=== PATIENT | male | born 1955 | race Caucasian/White ===

== ENCOUNTER → 2016-10-19 | Outpatient (CLI) | payer OTHER | END | disposition home or self-care (01) | LOC: LABWHC1 15:48 | PROVIDERS: ATTEND Internal Medicine Cardiovascular Disease | DX: I48.2 Chronic atrial fibrillation (principal) | CPT/HCPCS: 36415; 84443; 84450; 84460 ==

== ENCOUNTER → 2016-11-13 | Outpatient (CLI) | payer OTHER ==
[2016-11-13 11:10] LABS: CH 28.8; CHCM 33.1; HCT 50.3 % (39.0-53.0); HDW 2.64; MCH 27.8 pg (25.0-35.0); MCHC 31.8 g/dL (31.0-37.0); MCV 87.3 fL (80.0-100.0); RBC 5.76 m/uL (4.30-5.90); RDW 14.9 % (11.5-15.5); WBC 7.8 k/uL (3.8-10.6)
[2016-11-13 11:19] LABS: Anion Gap 10 mmol/L; Blood Urea Nitrogen 17 mg/dL (9-20); Carbon Dioxide 30 mmol/L (22-30); Chloride 104 mmol/L (98-107); Non-African American GFR(MDRD) >60 (>60 ml/min/1.73 sqM); Potassium 4.8 mmol/L (3.5-5.1); Sodium 144 mmol/L (137-145)
== END | disposition home or self-care (01) ==
LOC: LABPAT 10:43
PROVIDERS: ATTEND Internal Medicine Cardiovascular Disease
DX: Z01.818 Encounter for other preprocedural examination (principal); I48.1 Persistent atrial fibrillation
CPT/HCPCS: 80051; 82565; 84520; 85027

== ENCOUNTER 2016-11-22 06:46 | Day surgery (SDC) | payer OTHER ==
[2016-11-20 17:03] VITALS: BMI 37.5
[~2016-11-22 06:46] MED LIST: ALPRAZolam 0.25 MG TAB PO PRN; ALPRAZolam 0.5 MG TAB PO PRN; ASPIRIN 325 MG TAB PO STA; ATORVASTATIN 80 MG TAB PO STA; LACTATED RINGERS 1,000 ML IV SCH; NITROGLYCERIN SL TABS 0.4 MG TAB SUBLINGUAL PRN; SODIUM CHLORIDE 0.9% 1,000 ML in EMPTY BAG 1 BAG IV ONE
[2016-11-22 07:04] VITALS: TEMP 97.7
[2016-11-22 07:38] LABS: Prothrombin Time 19.3 sec (9.0-12.0)
[2016-11-22] MEDS ORDERED: LIDOCAINE 1% INJ 10MG/ML (20 ML MDV) ONE (07:55)
[2016-11-22] MEDS ORDERED: PROPOFOL 10 MG/ML 20 ML VIAL IV ONE (07:55)
[2016-11-22] MEDS: BENZOCAINE SPRAY 1 SPRAY CAN MUCOUS MEM ONE ×2 (07:55→08:00)
[2016-11-22] MEDS ORDERED: SODIUM CHLORIDE 0.9% 1,000 ML IV SCH (08:15)
--- NOTE | 2016-11-22 08:37 | ECHOT ---
INDICATIONS: Chronic atrial fibrillation. After obtaining informed consent, transesophageal echocardiogram was performed to rule out intracardiac thrombus prior to cardioversion in patient with chronic atrial fibrillation. Patient received local and IV sedation by the physician. He tolerated the procedure well without any obvious immediate complications. FINDINGS: 1. There is an echo dense lesion noted within the left atrial appendage, which could be a thrombus. We cannot rule out reverberation artifact either; however , we obtained the image in multiple views and even on color flow, color seemed to go around the lesion more suggestive of a thrombus than an artifact. 2. Left ventricle appears dilated, shows diffuse global hypokinesis with moderate to severe left ventricular dysfunction with an ejection fraction of 35% . 3. There is mild to moderate mitral regurgitation noted. 4. Aortic valve is a 3-leaflet valve. There is no evidence of aortic stenosis or regurgitation. 5 Tricuspid valve shows mild tricuspid regurgitation. 6. Interatrial septum does not show left to right shunt by color flow Doppler or right to left shunt by agitated saline contrast study. 7. Aorta shows mild to moderate atherosclerotic changes. CONCLUSION: 1. There is an echo dense lesion noted within the left atrial appendage, which could represent a thrombus, we cannot rule out an artifact. 2. Mild to moderate mitral regurgitation noted. 3. Diffuse global hypokinesis with moderate to severe left ventricular dysfunction with an ejection fraction of 35%. PLAN: I am going to cancel the cardioversion at this time. Continue him on Coumadin and the rest of the medications he is on. MTDD
[2016-11-22 09:42] VITALS: BP 121/84; PULSE 68; RESP 18
== END 2016-11-22 09:38 | disposition home or self-care (01) ==
LOC: CATHCVL 06:46
PROVIDERS: ATTEND Internal Medicine Cardiovascular Disease
DX: I48.2 Chronic atrial fibrillation (principal); I10 Essential (primary) hypertension; E78.5 Hyperlipidemia, unspecified; I42.0 Dilated cardiomyopathy; I34.0 Nonrheumatic mitral (valve) insufficiency; Z79.01 Long term (current) use of anticoagulants; Z79.899 Other long term (current) drug therapy
CPT/HCPCS: 85610; 93312; 93320; 93325

== ENCOUNTER 2016-12-11 09:00 | Inpatient (IN) | payer OTHER ==
[2016-12-11] MEDS ORDERED: SODIUM CHLORIDE 0.9% 500 ML IV STA (09:32)
--- NOTE | 2016-12-11 09:44 | ED ---
General Adult HPI - General Chief complaint: Extremity Problem,Nontraumatic Stated complaint: leg pain, burning, turning color Time Seen by Provider: 12/11/16 09:22 Source: patient, RN notes reviewed Mode of arrival: ambulatory Limitations: no limitations - History of Present Illness Initial comments: 61-year-old male presents to the emergency department with a chief complaint left/any redness and swelling. Patient states this is been getting worse for the last 3-4 days. Patient states he has had the shakes with this as well. Patient states that didn't admit to a history of infection to his leg in the past but states it cleared up with antibiotics outpatient clinic. Patient states he does take Coumadin as well. Patient denies any falls traumas or injuries to the leg. Patient states never took a fever to see if he had one. Patient denies any recent fever, chills, shortness of breath, chest pain, back pain, abdominal pain, nausea vomiting, numbness or tingling, dysuria or hematuria, constipation or diarrhea, headaches or visual changes, or any other current symptoms. - Related Data Home Medications Medication Instructions Recorded Confirmed Bumetanide 1 mg PO DAILY 01/18/16 12/11/16 Lisinopril [Zestril] 10 mg PO HS 01/18/16 12/11/16 Warfarin [Coumadin] 5 mg PO MOTUWETHFRSA 01/18/16 12/11/16 Warfarin [Coumadin] 7.5 mg PO BROWN 01/18/16 12/11/16 Amiodarone [Cordarone] 200 mg PO BID 11/20/16 12/11/16 Aspirin 325 mg PO HS 12/11/16 12/11/16 Cholecalciferol [Vitamin D3] 5,000 unit PO DAILY 12/11/16 12/11/16 Metoprolol Tartrate [Lopressor] 50 mg PO BID 12/11/16 12/11/16 Allergies Allergy/AdvReac Type Severity Reaction Status Date / Time No Known Allergies Allergy Verified 12/11/16 09:22 Review of Systems ROS Statement: Those systems with pertinent positive or pertinent negative responses have been documented in the HPI. ROS Other: All systems not noted in ROS Statement are negative. Past Medical History Past Medical History: Atrial Fibrillation, Heart Failure, Hyperlipidemia, Hypertension History of Any Multi-Drug Resistant Organisms: None Reported Past Surgical History: Tonsillectomy Additional Past Surgical History / Comment(s): CARDIOVERSION X2 WITH ZAIN Past Anesthesia/Blood Transfusion Reactions: Postoperative Nausea & Vomiting ( PONV) Additional Past Anesthesia/Blood Transfusion Reaction / Comment(s): SOME NAUSEA POST OP CARDIOVERSION Past Psychological History: No Psychological Hx Reported Smoking Status: Never smoker General Exam Limitations: no limitations General appearance: alert, in no apparent distress Neck exam: Present: normal inspection. Absent: tenderness, meningismus, lymphadenopathy Respiratory exam: Present: normal lung sounds bilaterally. Absent: respiratory distress, wheezes, rales, rhonchi, stridor Cardiovascular Exam: Present: regular rate, normal rhythm, normal heart sounds. Absent: systolic murmur, diastolic murmur, rubs, gallop, clicks Neurological exam: Present: alert, oriented X3 Psychiatric exam: Present: normal affect, normal mood Skin exam: Present: warm, dry, other (Redness and warmth to the left lower extremity this is circumferential below the knee) Course Vital Signs 12/11/16 12/11/16 09:03 11:32 Temperature 98.3 F 98.5 F Pulse Rate 109 H 92 Respiratory 18 18 Rate Blood Pressure 108/76 101/66 O2 Sat by Pulse 95 96 Oximetry Medical Decision Making - Medical Decision Making 61-year-old male presents to the emergency room chief complaint of left lower extremity redness and swelling.this time the case was spoken by Dr. Pizarro to Dr. Gloria any will be admitting the patient for IV antibiotics. This was discussed with the patient and he is in agreement with the plan. - Lab Data Result diagrams: 12/11/16 09:43 12/11/16 09:43 Lab Results 12/11/16 12/11/16 12/11/16 Range/Units 09:43 09:43 09:43 WBC 13.8 H (3.8-10.6) k/uL RBC 5.47 (4.30-5.90) m/uL Hgb 15.1 (13.0-17.5) gm/dL Hct 45.9 (39.0-53.0) % MCV 83.8 (80.0-100.0) fL MCH 27.6 (25.0-35.0) pg MCHC 33.0 (31.0-37.0) g/dL RDW 15.6 H (11.5-15.5) % Plt Count 158 (150-450) k/uL Neutrophils % 84 % Lymphocytes % 6 % Monocytes % 6 % Eosinophils % 1 % Basophils % 0 % Neutrophils # 11.7 H (1.3-7.7) k/uL Lymphocytes # 0.8 L (1.0-4.8) k/uL Monocytes # 0.9 (0-1.0) k/uL Eosinophils # 0.1 (0-0.7) k/uL Basophils # 0.0 (0-0.2) k/uL PT (9.0-12.0) sec INR (<1.2) APTT (22.0-30.0) sec Sodium 135 L (137-145) mmol/L Potassium 4.7 (3.5-5.1) mmol/L Chloride 104 (98-107) mmol/L Carbon Dioxide 19 L (22-30) mmol/L Anion Gap 12 mmol/L BUN 18 (9-20) mg/dL Creatinine 1.11 (0.66-1.25) mg/dL Est GFR (MDRD) Af Amer >60 (>60 ml/min/1.73 sqM) Est GFR (MDRD) Non-Af >60 (>60 ml/min/1.73 sqM) Glucose 127 H (74-99) mg/dL Plasma Lactic Acid Lobito 2.0 (0.7-2.0) mmol/L Calcium 9.3 (8.4-10.2) mg/dL Total Bilirubin 0.7 (0.2-1.3) mg/dL AST 28 (17-59) U/L ALT 29 (21-72) U/L Alkaline Phosphatase 72 (38-126) U/L Total Protein 6.9 (6.3-8.2) g/dL Albumin 3.7 (3.5-5.0) g/dL 12/11/16 Range/Units 09:43 WBC (3.8-10.6) k/uL RBC (4.30-5.90) m/uL Hgb (13.0-17.5) gm/dL Hct (39.0-53.0) % MCV (80.0-100.0) fL MCH (25.0-35.0) pg MCHC (31.0-37.0) g/dL RDW (11.5-15.5) % Plt Count (150-450) k/uL Neutrophils % % Lymphocytes % % Monocytes % % Eosinophils % % Basophils % % Neutrophils # (1.3-7.7) k/uL Lymphocytes # (1.0-4.8) k/uL Monocytes # (0-1.0) k/uL Eosinophils # (0-0.7) k/uL Basophils # (0-0.2) k/uL PT 17.9 H (9.0-12.0) sec INR 1.9 H (<1.2) APTT 28.9 (22.0-30.0) sec Sodium (137-145) mmol/L Potassium (3.5-5.1) mmol/L Chloride (98-107) mmol/L Carbon Dioxide (22-30) mmol/L Anion Gap mmol/L BUN (9-20) mg/dL Creatinine (0.66-1.25) mg/dL Est GFR (MDRD) Af Amer (>60 ml/min/1.73 sqM) Est GFR (MDRD) Non-Af (>60 ml/min/1.73 sqM) Glucose (74-99) mg/dL Plasma Lactic Acid Lobito (0.7-2.0) mmol/L Calcium (8.4-10.2) mg/dL Total Bilirubin (0.2-1.3) mg/dL AST (17-59) U/L ALT (21-72) U/L Alkaline Phosphatase (38-126) U/L Total Protein (6.3-8.2) g/dL Albumin (3.5-5.0) g/dL - Radiology Data Radiology results: report reviewed, image reviewed Disposition Clinical Impression: Left leg cellulitis Disposition: ADMITTED IP TO THIS [facility] Condition: Stable Referrals: Juliette De Guzman MD [Primary Care Provider] - 1-2 days Time of Disposition: :43 Decision Date: 12/11/16 Decision Time: :43
[2016-12-11 10:02] LABS: Basophils % (A) 0 %; CH 28.8; CHCM 34.5; Eosinophils # (A) 0.1 k/uL (0-0.7); Eosinophils % (A) 1 %; HCT 45.9 % (39.0-53.0); HDW 2.64; HGB 15.1 gm/dL (13.0-17.5); Luc # (Auto) 0.34; Luc % (Auto) 3; Lymphocytes # (A) 0.8 k/uL (1.0-4.8); Lymphocytes % (A) 6 %; MCH 27.6 pg (25.0-35.0); MCV 83.8 fL (80.0-100.0); Mean Platelet Volume 9.2; Monocytes # (A) 0.9 k/uL (0-1.0); Monocytes % (A) 6 %; Neutrophils # (A) 11.7 k/uL (1.3-7.7); Neutrophils % (A) 84 %; RBC 5.47 m/uL (4.30-5.90); RDW 15.6 % (11.5-15.5); WBC 13.8 k/uL (3.8-10.6); WBC (Perox) 13.79
--- NOTE | 2016-12-11 10:08 | XR ---
Left leg HISTORY: Pain and swelling, erythema 2 views of the left leg on 4 images Bone mineralization mildly reduced, joint spaces and alignment are maintained. Soft tissue swelling m ay be present. No periostitis. Soft tissue calcifications may represent phleboliths anterior to the p roximal tibia. There is a plantar calcaneal spur. Enthesophyte present at the insertion of the Achill es tendon. Suspect arthropathy at the intertarsal joints. IMPRESSION: Correlate for cellulitis, venous stasis disease, soft tissue swelling. No evident osteomy elitis.
[2016-12-11 10:20] LABS: INR 1.9 (<1.2); Partial Thromboplastin Time 28.9 sec (22.0-30.0); Prothrombin Time 17.9 sec (9.0-12.0)
[2016-12-11 10:53] LABS: ALT 29 U/L (21-72); AST 28 U/L (17-59); Alkaline Phosphatase 72 U/L (38-126); Anion Gap 12 mmol/L; Blood Urea Nitrogen 18 mg/dL (9-20); Calcium 9.3 mg/dL (8.4-10.2); Carbon Dioxide 19 mmol/L (22-30); Chloride 104 mmol/L (98-107); Glucose 127 mg/dL (74-99); Non-African American GFR(MDRD) >60 (>60 ml/min/1.73 sqM); Potassium 4.7 mmol/L (3.5-5.1); Sodium 135 mmol/L (137-145); Total Bilirubin 0.7 mg/dL (0.2-1.3); Total Protein 6.9 g/dL (6.3-8.2)
--- NOTE | 2016-12-11 11:27 | US ---
EXAMINATION TYPE: US venous doppler duplex LE LT DATE OF EXAM: 12/11/2016 11:08 AM COMPARISON: NONE CLINICAL HISTORY: Pain. left calf pain and discoloration. On coumadin x 7 years. SIDE PERFORMED: Left TECHNIQUE: The lower extremity deep venous system is examined utilizing real time linear array sonog karena with graded compression, doppler sonography and color-flow sonography. VESSELS IMAGED: External Iliac Vein (EIV) Common Femoral Vein Deep Femoral Vein Greater Saphenous Vein * Femoral Vein Popliteal Vein Small Saphenous Vein * Proximal Calf Veins (* superficial vessels) Left Leg: Appears negative for DVT Grayscale, color doppler, spectral doppler imaging performed of the deep veins of the lower extremiti es. There is normal flow, compressibility, vascular waveforms. IMPRESSION: No sonographic evidence of deep venous thrombosis of the left lower extremity.
[2016-12-11] MEDS ORDERED: IV VANCOMYCIN PER PHARMACY 1 EACH MISC MISCELLANE PRN (11:35)
[2016-12-11] MEDS ORDERED: NALOXONE 0.4 MG/ML 1 ML VIAL IV PRN (11:44)
[2016-12-11] MEDS ORDERED: ACETAMINOPHEN TAB 325 MG TAB PO PRN (11:44)
[2016-12-11] MEDS ORDERED: ONDANSETRON 4 MG/2 ML VIAL IVP PRN (11:44)
[2016-12-11] MEDS ORDERED: HYDROcodone/APAP 5-325MG 1 EACH TAB PO PRN (11:44)
[2016-12-11] MEDS: SODIUM CHLORIDE 0.9% 1,000 ML IV SCH ×2 (12:29→21:18)
[2016-12-11] MEDS ORDERED: VANCOMYCIN 2,500 MG in SODIUM CHLORIDE 0.9% 500 ML IVPB ONE (12:30)
[2016-12-11 15:00] VITALS: BMI 37.3
[2016-12-11] MEDS: WARFARIN 5 MG TAB PO SCH (17:13)
[2016-12-11] MEDS: METOPROLOL TARTRATE 50 MG TAB PO SCH (21:18)
[2016-12-11] MEDS: ASPIRIN 325 MG TAB PO SCH (21:18)
[2016-12-11] MEDS: AMIODARONE 200 MG TAB PO SCH (21:18)
[2016-12-11] MEDS: LISINOPRIL 10 MG TAB PO SCH (21:27)
[2016-12-12] MEDS ORDERED: VANCOMYCIN 2,000 MG in SODIUM CHLORIDE 0.9% 500 ML IVPB SCH ×2 (06:00→21:00)
[2016-12-12 08:49] LABS: Basophils % (A) 0 %; CH 28.6; CHCM 33.9; Eosinophils # (A) 0.1 k/uL (0-0.7); Eosinophils % (A) 1 %; HCT 42.3 % (39.0-53.0); HDW 2.71; Luc # (Auto) 0.44; Luc % (Auto) 4; Lymphocytes # (A) 1.1 k/uL (1.0-4.8); Lymphocytes % (A) 10 %; MCH 28.1 pg (25.0-35.0); MCHC 33.2 g/dL (31.0-37.0); MCV 84.8 fL (80.0-100.0); Mean Platelet Volume 8.9; Monocytes # (A) 0.8 k/uL (0-1.0); Monocytes % (A) 7 %; Neutrophils # (A) 8.1 k/uL (1.3-7.7); Neutrophils % (A) 77 %; RBC 4.99 m/uL (4.30-5.90); RDW 15.3 % (11.5-15.5); WBC 10.5 k/uL (3.8-10.6); WBC (Perox) 10.35
[2016-12-12 09:18] LABS: ALT 32 U/L (21-72); AST 24 U/L (17-59); Alkaline Phosphatase 68 U/L (38-126); Anion Gap 8 mmol/L; Blood Urea Nitrogen 13 mg/dL (9-20); Calcium 8.2 mg/dL (8.4-10.2); Carbon Dioxide 23 mmol/L (22-30); Chloride 107 mmol/L (98-107); Glucose 121 mg/dL (74-99); Non-African American GFR(MDRD) >60 (>60 ml/min/1.73 sqM); Potassium 3.8 mmol/L (3.5-5.1); Sodium 138 mmol/L (137-145); Total Bilirubin 0.5 mg/dL (0.2-1.3); Total Protein 6.1 g/dL (6.3-8.2)
[2016-12-12] MEDS: AMIODARONE 200 MG TAB PO SCH ×2 (09:39→22:07)
[2016-12-12] MEDS: METOPROLOL TARTRATE 50 MG TAB PO SCH ×2 (09:39→22:07)
[2016-12-12] MEDS: BUMETANIDE 1 MG TAB PO SCH (09:39)
[2016-12-12] MEDS: SODIUM CHLORIDE 0.9% 1,000 ML IV SCH ×2 (09:40→17:26)
[2016-12-12] MEDS: CHOLECALCIFEROL 1,000 UNIT TAB PO SCH (13:15)
--- NOTE | 2016-12-12 15:43 | P.HPIM ---
History of Present Illness H&P Date: 12/12/16 Chief Complaint: Redness of the left lower extremity This is a 61-year-old gentleman with past medical history noted below who presented to the emergency room for further evaluation of left lower extremity swelling and redness. Patient said that his problems started on Sunday with worsening redness and pain involving the left lower extremity. He denies any trauma or fall. He said that initially he was not worried about it but noted that over the past few days is being getting progressively worse. He also noted significant swelling involving his left lower extremity. He was evaluated in the emergency room and was found to have cellulitis that was circumferential involving the left lower extremity above the ankle up to the midshin. He underwent ultrasound Doppler that was negative for underlying DVT. Patient is on anticoagulation with Coumadin at home secondary to underlying chronic atrial fibrillation. Review of Systems Review of system: 14 points review of systems were obtained and were negative except to what were mentioned in the HPI. Past Medical History Past Medical History: Atrial Fibrillation, Heart Failure, Hyperlipidemia, Hypertension History of Any Multi-Drug Resistant Organisms: None Reported Past Surgical History: Tonsillectomy Additional Past Surgical History / Comment(s): CARDIOVERSIONS X2 WITH TEES, 11/22 had ZAIN and "they saw something so the cardioversion was cancelled.", colonoscopy. Past Anesthesia/Blood Transfusion Reactions: Postoperative Nausea & Vomiting ( PONV) Additional Past Anesthesia/Blood Transfusion Reaction / Comment(s): SOME NAUSEA POST OP CARDIOVERSION ONCE. Smoking Status: Never smoker - Past Family History Father Family Medical History: Congestive Heart Failure (CHF) Additional Family Medical History / Comment(s): FATHER OF CHF AT THE AGE OF 72 YRS. Mother Family Medical History: No Reported History Additional Family Medical History / Comment(s): MOTHER IS 82 YRS OLD AND HEALTHY. Medications and Allergies Home Medications Medication Instructions Recorded Confirmed Type Bumetanide 1 mg PO DAILY 01/18/16 12/11/16 History Lisinopril [Zestril] 10 mg PO HS 01/18/16 12/11/16 History Warfarin [Coumadin] 5 mg PO MOTUWETHFRSA 01/18/16 12/11/16 History Warfarin [Coumadin] 7.5 mg PO BROWN 01/18/16 12/11/16 History Amiodarone [Cordarone] 200 mg PO BID 11/20/16 12/11/16 History Aspirin 325 mg PO HS 12/11/16 12/11/16 History Cholecalciferol [Vitamin D3] 5,000 unit PO DAILY 12/11/16 12/11/16 History Metoprolol Tartrate [Lopressor] 50 mg PO BID 12/11/16 12/11/16 History Allergies Allergy/AdvReac Type Severity Reaction Status Date / Time No Known Allergies Allergy Verified 12/11/16 09:22 Physical Exam Vitals: Vital Signs Temp Pulse Pulse Resp BP BP Pulse Ox 12/12/16 07:00 98.1 F 68 16 129/80 97 12/11/16 23:00 99.0 F 100 20 116/74 95 12/11/16 21:25 98.8 F 106 H 18 122/77 96 Intake and Output 12/12/16 12/12/16 12/12/16 06:59 14:59 22:59 Intake Total 500 500 Balance 500 500 Intake: Intake, IV Titration 500 500 Amount Sodium Chloride 0.9% 1, 500 000 ml @ 100 mls/hr IV . Q10H [facility] Rx#:[id number] Vancomycin 2,000 mg In 500 Sodium Chloride 0.9% 500 ml @ 167 mls/hr IVPB BID [facility] Rx#:[id number] Other: # Voids 1 General: The patient is awake and alert, in no distress Eye: there is normal conjunctiva bilaterally. Neck: The neck is supple, there is no JVD. Cardiovascular: Normal S1-S2, no S3-S4, no murmurs. Respiratory: Lungs clear to auscultation bilaterally Gastrointestinal: Abdomen is soft, nontender Musculoskeletal: There is significant swelling involving the left lower extremity from the left ankle up to the midshin. There is also circumferential erythema that is warm to touch. Mild tenderness. Neurological:. Speech is normal. Skin: Skin is warm and dry Results CBC & Chem 7: 12/12/16 08:24 12/12/16 08:24 Labs: Abnormal Lab Results - Last 24 Hours (Table) 12/12/16 12/12/16 Range/Units 08:24 08:24 Neutrophils # 8.1 H (1.3-7.7) k/uL Glucose 121 H (74-99) mg/dL Calcium 8.2 L (8.4-10.2) mg/dL Total Protein 6.1 L (6.3-8.2) g/dL Albumin 3.2 L (3.5-5.0) g/dL Microbiology - Last 24 Hours (Table) 12/11/16 09:43 Blood Culture - Preliminary Blood No Growth after 24 hours Thrombosis Risk Factor Assmnt - Choose All That Apply Any of the Below Risk Factors Present?: Yes Each Factor Represents 1 point: Obesity (BMI >25) Other Risk Factors: Yes Each Risk Factor Represents 2 Points: Age 61-74 years Other congenital or acquired thrombophilia - If yes, enter type in comment: No Thrombosis Risk Factor Assessment Total Risk Factor Score: 3 Thrombosis Risk Factor Assessment Level: Moderate Risk Assessment and Plan Plan: 1. Cellulitis of the left lower extremity, patient was started on IV vancomycin. I have low suspicion for MRSA. I would change antibiotic to IV cefazolin. I will consult infectious disease for further evaluation. Blood culture negative to date. 2. Paroxysmal atrial fibrillation: Heart rate well controlled 3. Suspected left atrial appendage thrombus noted on ZAIN last month currently on anticoagulation with Coumadin and also on full dose aspirin 4. Essential hypertension: Blood pressure well controlled Today, reviewed his medication list and lab work results. We will continue current regimen. Advise for leg elevation. Repeat lab work in the morning.
[2016-12-12] MEDS: WARFARIN 5 MG TAB PO SCH (17:26)
[2016-12-12] MEDS: ceFAZolin 2 GM in SODIUM CHLORIDE 0.9% 100 ML IVPB SCH (17:26)
[2016-12-12] MEDS: LISINOPRIL 10 MG TAB PO SCH (22:07)
[2016-12-12] MEDS: ASPIRIN 325 MG TAB PO SCH (22:07)
[2016-12-12] MEDS: CLINDAMYCIN 900 MG in DEXTROSE 5% IN WATER 50 ML IVPB SCH ×2 (23:36)
[2016-12-13] MEDS: ceFAZolin 2 GM in SODIUM CHLORIDE 0.9% 100 ML IVPB SCH ×4 (01:11→23:02)
[2016-12-13] MEDS: SODIUM CHLORIDE 0.9% 1,000 ML IV SCH ×2 (06:53→12:05)
[2016-12-13] MEDS: CLINDAMYCIN 900 MG in DEXTROSE 5% IN WATER 50 ML IVPB SCH ×4 (07:24→15:00)
[2016-12-13 08:34] LABS: Basophils % (A) 0 %; CH 28.6; Eosinophils # (A) 0.1 k/uL (0-0.7); Eosinophils % (A) 1 %; HCT 43.8 % (39.0-53.0); HDW 2.71; HGB 14.8 gm/dL (13.0-17.5); Luc # (Auto) 0.38; Luc % (Auto) 3; Lymphocytes # (A) 1.1 k/uL (1.0-4.8); Lymphocytes % (A) 9 %; MCH 28.4 pg (25.0-35.0); MCHC 33.7 g/dL (31.0-37.0); MCV 84.3 fL (80.0-100.0); Mean Platelet Volume 9.2; Monocytes % (A) 8 %; Neutrophils # (A) 10.3 k/uL (1.3-7.7); Neutrophils % (A) 80 %; RBC 5.19 m/uL (4.30-5.90); RDW 15.4 % (11.5-15.5); WBC 12.8 k/uL (3.8-10.6); WBC (Perox) 12.51
[2016-12-13 08:37] LABS: INR 3.1 (<1.2); Prothrombin Time 30.2 sec (9.0-12.0)
[2016-12-13] MEDS: BUMETANIDE 1 MG TAB PO SCH (08:37)
[2016-12-13] MEDS: METOPROLOL TARTRATE 50 MG TAB PO SCH ×2 (08:37→20:11)
[2016-12-13] MEDS: AMIODARONE 200 MG TAB PO SCH ×2 (08:38→20:11)
[2016-12-13 08:58] LABS: Anion Gap 11 mmol/L; Blood Urea Nitrogen 10 mg/dL (9-20); Calcium 8.6 mg/dL (8.4-10.2); Carbon Dioxide 27 mmol/L (22-30); Chloride 105 mmol/L (98-107); Glucose 102 mg/dL (74-99); Non-African American GFR(MDRD) >60 (>60 ml/min/1.73 sqM); Potassium 4.3 mmol/L (3.5-5.1); Sodium 143 mmol/L (137-145)
--- NOTE | 2016-12-13 10:57 | CONS ---
CONSULTATION DATE OF SERVICE: 12/12/2016. REASON FOR CONSULTATION: Left lower extremity cellulitis. HISTORY OF PRESENT ILLNESS: The patient is a 61-year-old, male with a past medical history significant for an episode of cellulitis to the left leg a few years ago. The patient did noticed some swelling and redness to his left leg over the weekend on Sunday. However the patient did not pay any medical attention. The area has become more swollen, red and painful. Pain described to be dull aching pain especially when he walks on it, intensity about 3-4 out of 10 and no radiation. The patient did have some chills but denies any high-grade fever. For these symptoms the patient did come to the ER where the patient was evaluated by the ER physician. The patient did have lower extremity Doppler that was negative for DVT. He was started on vancomycin that was later on switched to Cefazolin and ID was consulted for further recommendation regarding antibiotic therapy. REVIEW OF SYSTEMS: Constitutional: Positive for weakness. Eyes: No complaint. ENT: No complaint. Respiratory: No complaint. Cardiovascular: No complaint. : No complaint. Gastrointestinal: No complaint. Musculoskeletal: No complaint. Integumentary: as per HPI. Psychological: No complaint. Endocrine: No complaint. Neurologic no complaint. PAST MEDICAL HISTORY: Hypertension, hyperlipidemia, atrial fibrillation, heart failure. PAST SURGICAL HISTORY: Tonsillectomy, cardioversion and colonoscopy. SOCIAL HISTORY: No history of smoking, drinking or drug use. FAMILY HISTORY: Father with history of congestive heart failure. ALLERGIES: No known drug allergies. MEDICATIONS: Include the patient is currently on: 1. Tylenol. 2. Effie. 3. Amiodarone. 4. Aspirin. 5. Bumex. 6. Cefazolin 2 g q.8h. 7. Vitamin D3. 8. Restoril. 9. Lopressor. 10.Narcan. 11.Zofran. 12.Coumadin. PHYSICAL EXAMINATION: Blood pressure is 106/71 with a pulse of 93, temperature 98.3, he is 96% on room air. General description is a middle aged male, lying in bed, in no distress. No tachypnea, accessory muscles of respiration use. HEENT: Shows no pallor or scleral icterus. Oral mucosa membranes dry. Neck trachea is central. No thyromegaly. LUNGS: Unlabored breathing. Clear to auscultation anteriorly. No wheeze or crackle. HEART: S1, S2. Regular rate and rhythm. ABDOMEN: Soft, no tenderness. Extremities: Left leg swelling and redness which is warm to touch. No evidence of athlete's foot. No skin breakdown. No drainage. Neurological: Patient is awake, alert, oriented x3. Mood and affect normal. LABS: Hemoglobin 14, white count 10.5, admission white count was 13.8 with a BUN of 13, creatinine 0.88. Blood culture obtained currently pending. Lower extremity Doppler was negative for DVT. DIAGNOSTIC IMPRESSION/PLAN: Patient with acute left lower extremity cellulitis in a patient who did have diffuse swelling and redness. Patient with low-grade fever. Elevated white count. Likely representing a streptococcal cellulitis. PLAN: 1. Navin the area of redness. 2. Morris wrap from just above to below the knee. 3. Continue the patient on Cefazolin, we will add clindamycin for added benefit. 4. We will follow up on the clinical condition and culture to further adjust medication if needed. Thank you for this consultation. Will follow this patient along with you. MMODL / IJN: [id number] /
[2016-12-13] MEDS: WARFARIN 5 MG TAB PO SCH (12:01)
[2016-12-13] MEDS: CHOLECALCIFEROL 1,000 UNIT TAB PO SCH (12:05)
--- NOTE | 2016-12-13 12:38 | P.PN ---
Subjective Patient is doing better today. Erythema is shrinking compared to the marking from yesterday. Objective - Vital Signs Vital signs: Vital Signs Temp 98.3 F 12/13/16 07:00 Pulse 120 H 12/13/16 07:00 Resp 20 12/13/16 07:00 BP 128/84 12/13/16 07:00 Pulse Ox 96 12/13/16 07:00 Intake & Output 12/12/16 12/13/16 12/13/16 18:59 06:59 18:59 Intake Total 500 1200 Balance 500 1200 Intake: Intake, IV Titration 500 Amount Vancomycin 2,000 mg In 500 Sodium Chloride 0.9% 500 ml @ 167 mls/hr IVPB BID [facility] Rx#:[id number] Oral 1200 Other: # Voids 1 2 - Exam General: The patient is awake and alert, in no distress Eye: there is normal conjunctiva bilaterally. Neck: The neck is supple, there is no JVD. Cardiovascular: Normal S1-S2, no S3-S4, no murmurs. Respiratory: Lungs clear to auscultation bilaterally Gastrointestinal: Abdomen is soft, nontender Musculoskeletal: There is +2 pedal edema. Left lower extremity wrapped with Morris wrap up to the knee. Neurological:. Speech is normal. Skin: Skin is warm and dry - Labs CBC & Chem 7: 12/13/16 07:49 12/13/16 07:49 Labs: Abnormal Lab Results - Last 24 Hours (Table) 12/13/16 12/13/16 12/13/16 Range/Units 07:49 07:49 07:49 WBC 12.8 H (3.8-10.6) k/uL Neutrophils # 10.3 H (1.3-7.7) k/uL PT 30.2 H (9.0-12.0) sec INR 3.1 H (<1.2) Glucose 102 H (74-99) mg/dL Microbiology - Last 24 Hours (Table) 12/11/16 09:43 Blood Culture - Preliminary Blood No Growth after 48 hours Assessment and Plan Plan: 1. Cellulitis of the left lower extremity, patient was seen and evaluated by infectious disease. Antibiotic adjusted. 2. Paroxysmal atrial fibrillation: Heart rate well controlled 3. Suspected left atrial appendage thrombus noted on ZAIN last month currently on anticoagulation with Coumadin and also on full dose aspirin 4. Essential hypertension: Blood pressure well controlled Today, reviewed his medication list and lab work results. We will continue current regimen. Advise for leg elevation. Repeat lab work in the morning. Anticipate discharge home within the next day or 2.
--- NOTE | 2016-12-13 16:58 | PN ---
PROGRESS NOTE DATE OF SERVICE: 12/13/2016. REASON FOR FOLLOW UP: Left lower extremity cellulitis. INTERVAL HISTORY: The patient is afebrile. Has been breathing comfortably. Swelling and redness to the right leg has slightly improved. Denies any chest pain, shortness of breath. No cough. No abdominal pain or diarrhea. PHYSICAL EXAMINATION: Blood pressure 122/84 with a pulse of 120, temperature 98.3. He is 96% room air. General description is a middle aged male, lying in bed, in no distress. RESPIRATORY SYSTEM: Unlabored breathing. Clear to auscultation anteriorly. HEART: S1, S2. Regular rate and rhythm. Right leg swelling and redness has slightly improved. LABS: Hemoglobin is 14.8, white count slightly elevated 12.8, BUN of 10, creatinine 0.88. Blood culture negative. DIAGNOSTIC IMPRESSION/PLAN: Patient with acute right lower extremity cellulitis with diffuse cellulitis likely streptococcal disease. The patient white count is slightly up today. We will keep the patient on Cefazolin and Clinda for another 24 hours. Admission white count is coming down before recommended discharge antibiotics. Continue supportive care. MMODL / IJN: [id number] /
[2016-12-13] MEDS: LISINOPRIL 10 MG TAB PO SCH (20:11)
[2016-12-13] MEDS: ASPIRIN 325 MG TAB PO SCH (20:11)
[2016-12-14] MEDS: CLINDAMYCIN 900 MG in DEXTROSE 5% IN WATER 50 ML IVPB SCH ×4 (00:49→07:30)
[2016-12-14] MEDS: SODIUM CHLORIDE 0.9% 1,000 ML IV SCH ×3 (00:50→23:27)
[2016-12-14] MEDS: METOPROLOL TARTRATE 50 MG TAB PO SCH ×2 (07:30→20:14)
[2016-12-14] MEDS: BUMETANIDE 1 MG TAB PO SCH (07:30)
[2016-12-14] MEDS: CHOLECALCIFEROL 1,000 UNIT TAB PO SCH (07:30)
[2016-12-14] MEDS: AMIODARONE 200 MG TAB PO SCH ×2 (07:30→20:13)
[2016-12-14] MEDS: ceFAZolin 2 GM in SODIUM CHLORIDE 0.9% 100 ML IVPB SCH ×3 (08:11→23:27)
[2016-12-14 08:40] LABS: Basophils % (A) 0 %; CH 28.8; CHCM 34.3; Eosinophils # (A) 0.1 k/uL (0-0.7); Eosinophils % (A) 1 %; HCT 42.3 % (39.0-53.0); HDW 2.69; HGB 13.7 gm/dL (13.0-17.5); Luc % (Auto) 1; Lymphocytes # (A) 1.2 k/uL (1.0-4.8); Lymphocytes % (A) 8 %; MCH 27.3 pg (25.0-35.0); MCHC 32.4 g/dL (31.0-37.0); MCV 84.2 fL (80.0-100.0); Mean Platelet Volume 8.7; Monocytes # (A) 0.7 k/uL (0-1.0); Monocytes % (A) 5 %; Neutrophils # (A) 12.1 k/uL (1.3-7.7); Neutrophils % (A) 85 %; RBC 5.03 m/uL (4.30-5.90); RDW 15.2 % (11.5-15.5); WBC 14.3 k/uL (3.8-10.6); WBC (Perox) 14.04
[2016-12-14 08:46] LABS: INR 3.5 (<1.2); Prothrombin Time 33.6 sec (9.0-12.0)
[2016-12-14 09:02] LABS: Anion Gap 12 mmol/L; Blood Urea Nitrogen 10 mg/dL (9-20); Calcium 8.6 mg/dL (8.4-10.2); Carbon Dioxide 24 mmol/L (22-30); Chloride 105 mmol/L (98-107); Glucose 157 mg/dL (74-99); Non-African American GFR(MDRD) >60 (>60 ml/min/1.73 sqM); Potassium 3.7 mmol/L (3.5-5.1); Sodium 141 mmol/L (137-145)
--- NOTE | 2016-12-14 12:29 | P.PN ---
Subjective Patient is doing well today. Redness is shrinking. Unfortunately leukocytosis is worse compared to yesterday. Objective - Vital Signs Vital signs: Vital Signs Temp 97.9 F 12/14/16 07:00 Pulse 89 12/14/16 07:00 Resp 16 12/14/16 07:00 BP 121/69 12/14/16 07:00 Pulse Ox 97 12/14/16 07:00 Intake & Output 12/13/16 12/14/16 12/14/16 18:59 06:59 18:59 Intake Total 950 1200 Balance 950 1200 Intake: IV 950 Clindamycin 900 mg In 50 Dextrose 5% in Water 50 ml @ 100 mls/hr IVPB Q8HR [facility] Rx#:[id number] Sodium Chloride 0.9% 1, 800 000 ml @ 100 mls/hr IV . Q10H [facility] Rx#:[id number] ceFAZolin 2 gm In Sodium 100 Chloride 0.9% 100 ml @ 100 mls/hr IVPB Q8HR [facility] Rx#:[id number] Oral 1200 Other: Voiding Method Toilet Toilet # Voids 2 - Exam General: The patient is awake and alert, in no distress Eye: there is normal conjunctiva bilaterally. Neck: The neck is supple, there is no JVD. Cardiovascular: Normal S1-S2, no S3-S4, no murmurs. Respiratory: Lungs clear to auscultation bilaterally Gastrointestinal: Abdomen is soft, nontender Musculoskeletal: Erythema on the left lower extremity is shrinking with no warmth or tenderness to palpation Neurological:. Speech is normal. Skin: Skin is warm and dry - Labs CBC & Chem 7: 12/14/16 08:04 12/14/16 08:04 Labs: Abnormal Lab Results - Last 24 Hours (Table) 12/14/16 12/14/16 12/14/16 Range/Units 08:04 08:04 08:04 WBC 14.3 H (3.8-10.6) k/uL Neutrophils # 12.1 H (1.3-7.7) k/uL PT 33.6 H (9.0-12.0) sec INR 3.5 H (<1.2) Glucose 157 H (74-99) mg/dL Microbiology - Last 24 Hours (Table) 12/11/16 09:43 Blood Culture - Preliminary Blood No Growth after 72 hours Assessment and Plan Plan: 1. Cellulitis of the left lower extremity, patient was seen and evaluated by infectious disease. Currently on IV antibiotic 2. Paroxysmal atrial fibrillation: Heart rate well controlled 3. Suspected left atrial appendage thrombus noted on ZAIN last month currently on anticoagulation with Coumadin and also on full dose aspirin 4. Essential hypertension: Blood pressure well controlled Today, reviewed his medication list and lab work results. Hold Coumadin tonight. We will continue current regimen. Advise for leg elevation. Repeat lab work in the morning. We will continue 1 more day of IV antibiotic given worsening leukocytosis. Infectious disease following. May discharge home tomorrow.
[2016-12-14] MEDS: ASPIRIN 325 MG TAB PO SCH (20:13)
[2016-12-14] MEDS: LISINOPRIL 10 MG TAB PO SCH (20:14)
[2016-12-15] MEDS: SODIUM CHLORIDE 0.9% 1,000 ML IV SCH (06:08)
[2016-12-15 08:00] VITALS: BP 129/79; PULSE 87; RESP 16; TEMP 97.3
[2016-12-15 08:19] LABS: Basophils # (A) 0.1 k/uL (0-0.2); Basophils % (A) 1 %; CH 27.6; CHCM 32.4; Eosinophils # (A) 0.3 k/uL (0-0.7); Eosinophils % (A) 2 %; HCT 44.6 % (39.0-53.0); HDW 2.68; HGB 14.4 gm/dL (13.0-17.5); Luc # (Auto) 0.25; Luc % (Auto) 2; Lymphocytes # (A) 1.6 k/uL (1.0-4.8); Lymphocytes % (A) 11 %; MCH 27.7 pg (25.0-35.0); MCHC 32.3 g/dL (31.0-37.0); MCV 85.5 fL (80.0-100.0); Mean Platelet Volume 7.8; Monocytes # (A) 0.8 k/uL (0-1.0); Monocytes % (A) 6 %; Neutrophils # (A) 11.4 k/uL (1.3-7.7); Neutrophils % (A) 79 %; RBC 5.21 m/uL (4.30-5.90); RDW 14.3 % (11.5-15.5); WBC 14.5 k/uL (3.8-10.6); WBC (Perox) 14.78
[2016-12-15] MEDS: ceFAZolin 2 GM in SODIUM CHLORIDE 0.9% 100 ML IVPB SCH (08:20)
[2016-12-15] MEDS: AMIODARONE 200 MG TAB PO SCH (08:20)
[2016-12-15] MEDS: METOPROLOL TARTRATE 50 MG TAB PO SCH (08:21)
[2016-12-15] MEDS: BUMETANIDE 1 MG TAB PO SCH (08:21)
[2016-12-15 08:33] LABS: Anion Gap 10 mmol/L; Blood Urea Nitrogen 12 mg/dL (9-20); Carbon Dioxide 28 mmol/L (22-30); Chloride 104 mmol/L (98-107); Glucose 96 mg/dL (74-99); Non-African American GFR(MDRD) >60 (>60 ml/min/1.73 sqM); Potassium 4.8 mmol/L (3.5-5.1); Sodium 142 mmol/L (137-145)
[2016-12-15 09:32] LABS: INR 2.6 (<1.2); Prothrombin Time 24.6 sec (9.0-12.0)
--- NOTE | 2016-12-15 10:18 | PN ---
PROGRESS NOTE DATE OF SERVICE: 12/14/2016 REASON FOR FOLLOWUP: Left lower extremity cellulitis. INTERVAL HISTORY: The patient is afebrile. Has been breathing comfortably. Overall left leg swelling persists, but the redness has much improved. The patient denies any chest pain, shortness of breath or cough. No abdominal pain or any diarrhea. PHYSICAL EXAMINATION: On examination, blood pressure 128/81 with a pulse of 91, temperature 98.5. He is 99% on room air. General description is middle-aged male, lying in bed, in no distress. RESPIRATORY SYSTEM: Unlabored breathing. Clear to auscultation anteriorly. HEART: S1, S2. Regular rate and rhythm. ABDOMEN: Soft, no tenderness. Left leg swelling persists though the redness has improved significantly. No fluctuation or induration. LABS: Hemoglobin 13.7, white count of 14.3, with BUN of 10 creatinine 0.84. DIAGNOSTIC IMPRESSION AND PLAN: Patient with acute left lower extremity cellulitis with diffuse swelling and redness. The patient has noticed to have slight worsening of the white count, will be monitor closely. As clinically not showing any worsening of his cellulitis, rather improved keep the patient on cefazolin. Will discontinue the clindamycin and re-evaluate the patient tomorrow. Continue with the Morris wrap to keep the swelling down. The patient and his was educated about his condition. MMODL / IJN: [id number] /
--- NOTE | 2016-12-15 11:30 | P.DS ---
Providers Date of admission: 12/11/16 11:41 Expected date of discharge: 12/15/16 Attending physician: Josr Gloria Consults: 12/12/16 15:38 Consult Physician Routine Consulting Provider: Christophe Ruiz Consult Reason/Comments: Cellulitis Do you want consulting provider notified?: Yes Primary care physician: [facility] Course: This is a 61-year-old gentleman who presented to the emergency room with worsening swelling and redness of the left lower extremity. He was evaluated and ultrasound showed no evidence of underlying DVT. He was treated with broad- spectrum antibiotic with good clinical response. He was seen and evaluated by infectious disease. He will be discharged home to finish antibiotic course with Keflex for 10 days. He was advised regarding leg elevation and compression stocking use. 1. Cellulitis of the left lower extremity 2. Paroxysmal atrial fibrillation: Heart rate well controlled 3. Suspected left atrial appendage thrombus noted on ZAIN last month currently on anticoagulation with Coumadin and also on full dose aspirin 4. Essential hypertension: Blood pressure well controlled Patient Condition at Discharge: Stable Plan - Discharge Summary New Discharge Prescriptions: New Cephalexin [Keflex] 500 mg PO Q8HR #30 cap Continue Bumetanide 1 mg PO DAILY Lisinopril [Zestril] 10 mg PO HS Amiodarone [Cordarone] 200 mg PO BID Metoprolol Tartrate [Lopressor] 50 mg PO BID Cholecalciferol [Vitamin D3] 5,000 unit PO DAILY Aspirin 325 mg PO HS Changed Warfarin [Coumadin] 5 mg PO HS #0 Discontinued Warfarin [Coumadin] 7.5 mg PO BROWN Discharge Medication List Bumetanide 1 mg PO DAILY 01/18/16 [History] Lisinopril [Zestril] 10 mg PO HS 01/18/16 [History] Amiodarone [Cordarone] 200 mg PO BID 11/20/16 [History] Aspirin 325 mg PO HS 12/11/16 [History] Cholecalciferol [Vitamin D3] 5,000 unit PO DAILY 12/11/16 [History] Metoprolol Tartrate [Lopressor] 50 mg PO BID 12/11/16 [History] Cephalexin [Keflex] 500 mg PO Q8HR #30 cap 12/15/16 [Rx] Warfarin [Coumadin] 5 mg PO HS #0 12/15/16 [Rx] Follow up Appointment(s)/Referral(s): Juliette De Guzman MD [Primary Care Provider] - 3 Days Christophe Ruiz MD [STAFF PHYSICIAN] - 1 Week Discharge Disposition: HOME SELF-CARE
--- NOTE | 2016-12-15 16:01 | PN ---
PROGRESS NOTE DATE OF SERVICE: 12/15/2016 REASON FOR FOLLOW UP: Left lower extremity cellulitis. INTERVAL HISTORY: The patient is afebrile. Has been breathing comfortably. Denies any chest pain, shortness of breath, cough. No abdominal pain. Overall pain and redness to the leg has improved, resolved. Swelling persists though. No diarrhea. EXAMINATION: On examination, blood pressure 129/79 with a pulse of 87. Temperature 97.3. He is 98% on room air. General description is a middle aged male up in the bed in no distress. RESPIRATORY SYSTEM: Unlabored breathing. Clear to auscultation anteriorly. HEART: S1, S2. Regular rate. ABDOMEN: Soft, no tenderness. Left leg swelling persists though redness has improved. LABS: White count 14.5, INR 2.6, BUN of 12, creatinine 0.9. DIAGNOSTIC IMPRESSION AND PLAN: Patient with acute left lower extremity cellulitis. The patient did have overall improved. His white count still elevated although no clinical evidence of any worsening of infection. Would agree with discharge on oral Keflex with close outpatient followup. Patient advised to monitor his INR closely while on antibiotic. MMODL / IJN: [id number] /
[2016-12-17] MEDS ORDERED: WARFARIN 7.5 MG TAB PO SCH (18:00)
== END 2016-12-15 12:53 | disposition home or self-care (01) | DRG 603 ==
LOC: EC 09:00 → 4MS4W 11:41
PROVIDERS: ADMIT Internal Medicine; ATTEND Internal Medicine
DX: L03.116 Cellulitis of left lower limb (principal); I11.0 Hypertensive heart disease with heart failure; I50.9 Heart failure, unspecified; I51.3 Intracardiac thrombosis, not elsewhere classified; I48.0 Paroxysmal atrial fibrillation; E78.5 Hyperlipidemia, unspecified; Z79.82 Long term (current) use of aspirin; Z79.01 Long term (current) use of anticoagulants; Z79.899 Other long term (current) drug therapy
CPT/HCPCS: 36415; 80048; 80053; 83605; 85025; 85610; 85730; 87040; 96360; 96361; 99285

== ENCOUNTER → 2017-01-18 | Outpatient (CLI) | payer OTHER ==
[2017-01-18 11:15] LABS: CH 29.3; CHCM 32.9; HCT 44.8 % (39.0-53.0); HDW 2.62; HGB 12.6 gm/dL (13.0-17.5); MCH 25.2 pg (25.0-35.0); MCHC 28.2 g/dL (31.0-37.0); MCV 89.3 fL (80.0-100.0); Mean Platelet Volume 8.8; RBC 5.02 m/uL (4.30-5.90); RDW 15.8 % (11.5-15.5); WBC 7.3 k/uL (3.8-10.6)
[2017-01-18 11:23] LABS: Anion Gap 8 mmol/L; Blood Urea Nitrogen 19 mg/dL (9-20); Carbon Dioxide 29 mmol/L (22-30); Chloride 104 mmol/L (98-107); Non-African American GFR(MDRD) >60 (>60 ml/min/1.73 sqM); Potassium 4.6 mmol/L (3.5-5.1); Sodium 141 mmol/L (137-145)
== END | disposition home or self-care (01) ==
LOC: LABPAT 10:44
PROVIDERS: ATTEND Internal Medicine Cardiovascular Disease
DX: Z01.812 Encounter for preprocedural laboratory examination (principal); I48.2 Chronic atrial fibrillation
CPT/HCPCS: 36415; 80051; 82565; 84520; 85027

== ENCOUNTER → 2018-11-08 | Day surgery (SDC) | payer BC, MEDICARE ==
[2018-11-05 13:04] VITALS: BMI 38.5
[~2018-11-08] MED LIST changes: -ALPRAZolam 0.25 MG TAB PO PRN; -ALPRAZolam 0.5 MG TAB PO PRN; -ASPIRIN 325 MG TAB PO STA; -ATORVASTATIN 80 MG TAB PO STA; +BENZOCAINE SPRAY 1 CAN MUCOUS MEM ONE; +LIDOCAINE 1% INJ 10MG/ML (20 ML MDV) ONE; -NITROGLYCERIN SL TABS 0.4 MG TAB SUBLINGUAL PRN; +PROPOFOL 10 MG/ML 20 ML VIAL IV ONE; +SODIUM CHLORIDE 0.9% 1,000 ML IV SCH; -SODIUM CHLORIDE 0.9% 1,000 ML in EMPTY BAG 1 BAG IV ONE
[2018-11-08 06:57] VITALS: TEMP 98.1
[2018-11-08 07:05] LABS: INR 2.3 (<1.2); Prothrombin Time 22.4 sec (9.0-12.0)
[2018-11-08 08:32] VITALS: RESP 16
--- NOTE | 2018-11-08 08:46 | ECHOT ---
TRANSESOPHAGEAL ECHOCARDIOGRAM TRANSESOPHAGEAL ECHO: INDICATION: Chronic atrial fibrillation. PROCEDURE NOTE: After obtaining informed consent, transesophageal echocardiogram was performed in left lateral position using an Omniplane probe. Local and IV sedation were obtained by the mill controller. Patient tolerated the procedure well without any obvious immediate complications. FINDINGS: 1. There is no intracardiac thrombus within the left atrial appendage, left atrium, right atrium, right ventricle. 2. Left ventricle appears mildly enlarged, shows diffuse global hypokinesis with moderate LV dysfunction with an ejection fraction of around 40%. 3. Right atrium and right ventricle appear mildly enlarged. 4. Tricuspid valve shows mild tricuspid regurgitation. 5. Mitral valve shows mild to moderate mitral regurgitation. Aortic valve is a 3- leaflet valve. There is no evidence of stenosis regurgitation. Aorta shows mild atherosclerotic changes. 6. Interatrial septum, there is no evidence of yigs-oo-wcfrr shunt by color-flow Doppler or jntou-jp-mged shunt by agitated saline contrast study. CONCLUSION: No intracardiac thrombus. PLAN: Patient will proceed with cardioversion. CARDIOVERSION: INDICATION: Chronic atrial fibrillation. After making sure that the patient does not have any intracardiac thrombus by transesophageal echo and confirming that he has therapeutic INR, patient underwent electrical cardioversion. He was shocked once with 300 joules and converted to sinus rhythm. He will continue on his current medications including the Coumadin and he will follow up with me in a week's time. MMODL / IJN: [id number] /
[2018-11-08 13:16] VITALS: BP 100/65; PULSE 52
== END | disposition home or self-care (01) ==
LOC: CATHCVL 06:28
PROVIDERS: ATTEND Internal Medicine Cardiovascular Disease
DX: I48.2 Chronic atrial fibrillation (principal); I08.1 Rheumatic disorders of both mitral and tricuspid valves; E78.5 Hyperlipidemia, unspecified; I10 Essential (primary) hypertension; Z79.01 Long term (current) use of anticoagulants; Z79.899 Other long term (current) drug therapy
CPT/HCPCS: 93312; 93320; 93325; 92960; 85610; J2001; J2704

== ENCOUNTER 2020-08-18 07:17 | Day surgery (SDC) | payer MEDICARE ==
[2020-08-13 13:33] VITALS: BMI 35.9
[2020-08-18] MEDS ORDERED: LACTATED RINGERS 1,000 ML IV SCH (07:40)
[2020-08-18] MEDS ORDERED: SODIUM CHLORIDE 0.9% 1,000 ML IV SCH ×2 (07:40→11:15)
[2020-08-18 07:56] VITALS: TEMP 98.1
[2020-08-18 08:18] LABS: INR 2.2 (<1.2); Prothrombin Time 21.4 sec (9.0-12.0)
[2020-08-18] MEDS: BENZOCAINE SPRAY 1 CAN MUCOUS MEM ONE ×2 (08:32→08:49)
[2020-08-18] MEDS ORDERED: PROPOFOL 10 MG/ML 20 ML VIAL IV ONE (08:35)
[2020-08-18 08:40] VITALS: RESP 16
[2020-08-18 10:53] VITALS: BP 126/71; PULSE 87
--- NOTE | 2020-08-18 13:54 | LTR ---
August 18, 2020 Re: Brain Hyman Dear Juliette: I performed at transesophageal echocardiogram and cardioversion on Brain Hyman for persistent atrial fibrillation. I am happy to report to you that he converted to sinus rhythm and I hope that he stays in sinus. I talked to him about undergoing ablation which he has been reluctant to in the past that if he goes back into atrial fibrillation this is something that we may have to look at. Thank you for giving me the privilege to participate in the care of this pleasant gentleman. Sincerely yours, MD FANNY Abraham / BENJAMIN: [id number] /
--- NOTE | 2020-08-18 13:54 | CE ---
CARDIAC ELECTROPHYSIOLOGY REPORT CARDIOVERSION NOTE: INDICATION: Persistent atrial fibrillation. PROCEDURE NOTE: After obtaining informed consent and making sure that the patient does not have any intracardiac thrombosis with a transesophageal echo and adequately anticoagulated with an INR of 2.2, the patient underwent electrical cardioversion. He received 300 joules synchronized DC current, which did not put him into sinus rhythm. He went on to receive a 360 joules shock following which he converted to sinus rhythm and stayed in sinus rhythm. He will be discharged home on amiodarone, metoprolol, Coumadin, lisinopril, and Bumex that he is currently on. MMODL / IJN: [id number] /
--- NOTE | 2020-08-18 14:57 | ECHOT ---
TRANSESOPHAGEAL ECHOCARDIOGRAM INDICATION: To rule out intracardiac thrombus prior to cardioversion in a patient with persistent atrial fibrillation. PROCEDURE NOTE: After obtaining informed consent, transesophageal echocardiogram was performed in left lateral position using an Omniplane probe. A 2D M-mode color Doppler evaluation and spectral evaluation was performed. The patient tolerated the procedure well without any obvious immediate complications. FINDINGS: 1. There is no intracardiac thrombus within the left atrial appendage, left atrium, right atrium and right ventricular or left ventricle. 2. Left atrium appears enlarged. 3. Right atrium, right ventricle seen within normal limits. 4. Mitral valve is anatomically normal. There is mild to moderate central mitral regurgitation secondary to mitral annular dilatation. 5. Left ventricle appears enlarged with moderate LV dysfunction with an ejection fraction of 40% to 45%. 6. Interatrial Septum: There is no evidence of ekbg-us-lqesw shunt by color-flow Doppler or dhgoq-gc-iqim shunt by agitated saline contrast study. 7. Aorta shows mild atherosclerotic changes. 8. Aortic valve is a 3-leaflet valve. There is no evidence of aortic stenosis or regurgitation. 9. Tricuspid valve shows mild tricuspid regurgitation. CONCLUSIONS: 1. No intracardiac thrombus. 2. Mild to moderate mitral regurgitation. 3. Nonischemic cardiomyopathy. PLAN: Patient will undergo cardioversion. MMODL / IJN: [id number] /
== END 2020-08-18 10:42 | disposition home or self-care (01) ==
LOC: CATHCVL 07:17
PROVIDERS: ATTEND Internal Medicine Cardiovascular Disease
DX: I48.21 Permanent atrial fibrillation (principal); E78.5 Hyperlipidemia, unspecified; I10 Essential (primary) hypertension; I42.0 Dilated cardiomyopathy; Z79.01 Long term (current) use of anticoagulants; Z79.899 Other long term (current) drug therapy; Z90.89 Acquired absence of other organs
CPT/HCPCS: 93312; 93320; 93325; 92960; 85610; 87635; J2704

== ENCOUNTER → 2020-09-15 | Outpatient (CLI) | payer MEDICARE ==
--- NOTE | 2020-09-15 09:45 | US ---
EXAMINATION TYPE: US thyroid st tissue head/neck DATE OF EXAM: 09/15/2020 COMPARISON: NONE CLINICAL HISTORY: R94.6 Abn results of thyroid function studies. abn function test GLAND SIZE: Right Lobe: 5.9 x 1.8 x 2.1 cm Overall Parenchyma: homogenous Left Lobe: 5.3 x 1.8 x 1.5 cm Overall Parenchyma: homogeneous Isthmus Thickness: .7 cm NODULES RIGHT: # of nodules measured on right: 0 LEFT: # of nodules measured on left: 0 ISTHMUS: # of nodules measured in the isthmus: 0 Bilateral neck scanned, no evidence of lymphadenopathy. IMPRESSION: No solid nodules seen in the thyroid. 2017 ACR TI-RADS LEVEL: TR-RADS 1 - BENIGN: No FNA *Highest TI-RADS level nodule reported
--- NOTE | 2020-09-16 09:19 | NM ---
EXAMINATION TYPE: NM thyroid image w uptake DATE OF EXAM: 09/16/2020 COMPARISON: Same day thyroid ultrasound. HISTORY: Abnormal thyroid lab values. TECHNIQUE: Thyroid iodine uptake is calculated and images performed after the oral administration of 315 uCi 1-123 Capsule. FINDINGS: Scan images show poor activity throughout the thyroid gland. Same day ultrasound shows norm al sized thyroid. This makes scan findings unusual, perhaps poor labeling of radiotracer. Significant background uptake noted. The 4 hour iodine uptake is calculated at 1% (normal range 8-14%). The 24-hour iodine uptake is calcu lated at 1% (normal range 15-35%). IMPRESSION: Abnormal study. Poor scan by thyroid perhaps product of radiotracer mislabeling. Poor upt bradford suggests product of hypothyroidism. Correlate clinically.
== END | disposition home or self-care (01) ==
LOC: RADUSWWP 07:28
PROVIDERS: ATTEND Family Medicine
DX: R94.6 Abnormal results of thyroid function studies (principal)
CPT/HCPCS: 76536; 78014

== ENCOUNTER 2020-11-25 09:36 | Day surgery (SDC) | payer MEDICARE ==
[2020-11-19 11:58] VITALS: BMI 36.9
[~2020-11-25 09:36] MED LIST changes: -BENZOCAINE SPRAY 1 CAN MUCOUS MEM ONE; -LIDOCAINE 1% INJ 10MG/ML (20 ML MDV) ONE; -PROPOFOL 10 MG/ML 20 ML VIAL IV ONE
[2020-11-25] MEDS ORDERED: SODIUM CHLORIDE 0.9% 500 ML 500 ML IV ONE (10:10)
[2020-11-25] MEDS ORDERED: PROPOFOL 10 MG/ML 20 ML VIAL IV ONE (10:35)
[2020-11-25] MEDS ORDERED: LIDOCAINE 1% INJ 10MG/ML (20 ML MDV) ONE (10:35)
[2020-11-25 10:55] VITALS: TEMP 98
[2020-11-25] MEDS ORDERED: SODIUM CHLORIDE 0.9% 1,000 ML IV SCH (11:00)
[2020-11-25 11:37] VITALS: RESP 18
[2020-11-25 12:32] VITALS: BP 104/66; PULSE 74
--- NOTE | 2020-12-08 11:29 | ECHOT ---
TRANSESOPHAGEAL ECHOCARDIOGRAM PERFORMING PHYSICIAN: Adi Garza M.D. PROCEDURE PERFORMED: Transesophageal echocardiogram. INDICATIONS: Persistent atrial fibrillation. PROCEDURE NOTE: After obtaining informed consent, transesophageal echocardiogram was performed in left lateral position using an Omniplane probe. Local and IV sedation were obtained by the recreation therapy aide. We performed 2D M-mode color Doppler evaluation. FINDINGS: 1. Left ventricle appears enlarged with diffuse global hypokinesis with moderate LV dysfunction with an ejection fraction of 40%. 2. Left atrium appears enlarged. 3. Right atrium and right ventricle seem within normal limits. 4. There is mild to moderate mitral regurgitation noted. 5. Aortic valve is free of stenosis or regurgitation. 6. Tricuspid valve shows mild tricuspid regurgitation. 7. Left atrial appendage shows an echodense lesion suggestive of a thrombus. CONCLUSIONS: Echodense lesion within the left atrial appendage. PLAN: Will cancel the cardioversion at this time. Add aspirin to the current anticoagulant. Will make another attempt at cardioversion at a later time. MMODL / IJN: [id number] /
== END 2020-11-25 12:25 | disposition home or self-care (01) ==
LOC: CATHCVL 09:36
PROVIDERS: ATTEND Internal Medicine Cardiovascular Disease
DX: I48.91 Unspecified atrial fibrillation (principal); E78.5 Hyperlipidemia, unspecified; I10 Essential (primary) hypertension; E05.90 Thyrotoxicosis, unspecified without thyrotoxic crisis or storm; I08.1 Rheumatic disorders of both mitral and tricuspid valves
CPT/HCPCS: 93312; 93320; 93325; J2001; J2704

== ENCOUNTER → 2021-12-15 | Day surgery (SDC) | payer MEDICARE ==
[~2021-12-15] MED LIST changes: +BENZOCAINE SPRAY 1 CAN TOPICAL ONE; +LIDOCAINE 2% INJ 20 MG/ML (2 ML VIAL) ONE; +PROPOFOL 10 MG/ML 20 ML VIAL IV ONE
[2021-12-15 06:35] VITALS: TEMP 98.1
[2021-12-15 07:45] LABS: Calcium 8.9 mg/dL (8.4-10.2)
[2021-12-15 18:17] VITALS: RESP 18
[2021-12-15 18:18] VITALS: BP 122/84; PULSE 72
--- NOTE | 2021-12-16 04:06 | ECHOT ---
TRANSESOPHAGEAL ECHOCARDIOGRAM INDICATIONS: To rule out intracardiac thrombus in a patient with known persistent atrial fibrillation. PROCEDURE NOTE: After obtaining informed consent, transesophageal echocardiogram was performed in left lateral position using an Omniplane probe. Local and IV sedation were obtained by the backbreaker. The patient tolerated the procedure well without any immediate complications. 2D color Doppler and spectral analysis had been performed. FINDINGS: 1. There is no intracardiac thrombus within the left atrial appendage, left atrium, right atrium, right ventricle. 2. Left atrium appears severely enlarged. 3. Right atrium and right ventricle appear mildly enlarged. 4. Left ventricle appears dilated shows diffuse global hypokinesis with severe LV dysfunction with an ejection fraction of 30%. There is moderate mitral regurgitation. 5. Aortic valve is free of stenosis or regurgitation. 6. Tricuspid valve shows mild tricuspid regurgitation. 7. Aortic root appears normal. 8. Interatrial septum, there is no evidence of right shunt by color-flow Doppler or dnviw-be-rshh shunt by agitated saline contrast study. CONCLUSIONS: No intracardiac thrombus, severe LV dysfunction, moderate mitral regurgitation. PLAN: The patient will proceed with cardioversion. MMODL / IJN: [id number] /
== END ==
LOC: CATHCVL 05:44
PROVIDERS: ATTEND Internal Medicine Cardiovascular Disease
DX: I48.19 Other persistent atrial fibrillation (principal); E05.80 Other thyrotoxicosis without thyrotoxic crisis or storm; T46.2X5A Adverse effect of other antidysrhythmic drugs, initial encounter; I42.0 Dilated cardiomyopathy; I10 Essential (primary) hypertension; E78.5 Hyperlipidemia, unspecified; E66.01 Morbid (severe) obesity due to excess calories; Z68.41 Body mass index [BMI] 40.0-44.9, adult; Z82.49 Family history of ischemic heart disease and other diseases of the circulatory system; Z79.01 Long term (current) use of anticoagulants; Z79.82 Long term (current) use of aspirin; Z79.899 Other long term (current) drug therapy
CPT/HCPCS: 93312; 93320; 93325; 92960; 80048; J2704; J2001

== ENCOUNTER 2023-05-09 09:32 | Emergency (ER) | payer MEDICARE ==
[2023-05-09 10:13] VITALS: RESP 18
--- NOTE | 2023-05-09 10:14 | ED ---
General Adult HPI - General Chief complaint: Fall Stated complaint: LEFT KNEE FALL Time Seen by Provider: 05/09/23 09:36 Source: patient, RN notes reviewed, old records reviewed Mode of arrival: wheelchair Limitations: no limitations - History of Present Illness Initial comments: 67-year-old male presents for evaluation of left knee pain and swelling. Patient had a fall 1 week prior landing on his left knee. He states he was seen at outside hospital and had x-rays performed which were reported as negative. Patient has been unable to bear weight and has had significant swelling and bruising to the left knee. He denies any other injury. He is on [employer] history of A-fib. - Related Data Home Medications Medication Instructions Recorded Confirmed Bumetanide 1 mg PO DAILY 01/18/16 12/15/21 lisinopriL [Zestril] 10 mg PO DAILY 01/18/16 12/15/21 Cholecalciferol [Vitamin D3 (25 5,000 unit PO HS 12/11/16 12/15/21 Mcg = 1000 Iu)] Cetirizine HCl [Zyrtec] 10 mg PO HS PRN 01/22/17 12/15/21 Metoprolol Tartrate [Lopressor] 100 mg PO BID 01/22/17 12/15/21 Apixaban [Eliquis] 5 mg PO BID 11/19/20 12/15/21 methIMAzole [Tapazole] 5 mg PO MOWEFR 11/19/20 12/15/21 Aspirin 325 mg PO HS 12/13/21 12/15/21 dilTIAZem HCL 30 mg PO TID 12/13/21 12/15/21 Allergies Allergy/AdvReac Type Severity Reaction Status Date / Time No Known Allergies Allergy Verified 05/09/23 09:45 Review of Systems ROS Statement: Those systems with pertinent positive or pertinent negative responses have been documented in the HPI. ROS Other: All systems not noted in ROS Statement are negative. Past Medical History Past Medical History: Atrial Fibrillation, Heart Failure, Hypertension, Thyroid Disorder History of Any Multi-Drug Resistant Organisms: None Reported Past Surgical History: Tonsillectomy Additional Past Surgical History / Comment(s): CARDIOVERSIONS X2 WITH TEES, colonoscopy. Past Anesthesia/Blood Transfusion Reactions: Postoperative Nausea & Vomiting (PONV) Additional Past Anesthesia/Blood Transfusion Reaction / Comment(s): SOME NAUSEA POST OP CARDIOVERSION ONCE. Past Psychological History: No Psychological Hx Reported Smoking Status: Never smoker Past Alcohol Use History: None Reported Past Drug Use History: None Reported - Past Family History Mother Family Medical History: No Reported History Father Family Medical History: Congestive Heart Failure (CHF) Additional Family Medical History / Comment(s): FATHER OF CHF AT THE AGE OF 72 YRS. General Exam Limitations: no limitations General appearance: alert, in no apparent distress Head exam: Present: atraumatic, normocephalic Eye exam: Present: normal appearance, PERRL ENT exam: Present: normal exam Neck exam: Present: normal inspection. Absent: tenderness, meningismus Respiratory exam: Present: normal lung sounds bilaterally. Absent: respiratory distress, wheezes, rales Cardiovascular Exam: Present: regular rate, irregular rhythm GI/Abdominal exam: Present: soft. Absent: distended Extremities exam: Present: other (Large joint effusion, left knee, ecchymosis from knee to mid thigh. Range of motion limited by pain. Distal pulses intact.) Neurological exam: Present: alert, oriented X3, CN II-XII intact Psychiatric exam: Present: normal affect, normal mood Course Vital Signs 05/09/23 09:41 Temperature 97.9 F Pulse Rate 59 L Respiratory 18 Rate Blood Pressure 119/79 O2 Sat by Pulse 97 Oximetry Medical Decision Making - Medical Decision Making Was pt. sent in by a medical professional or institution (NAZIA Galeana, H[employer] WORKER, urgent care, hospital, or snf...) When possible be specific @ -No Did you speak to anyone other than the patient for history (EMS, parent, family, police, friend...)? What history was obtained from this source @ -No Did you review nursing and triage notes (agree or disagree)? Why? @ -I reviewed and agree with nursing and triage notes Were old charts reviewed (outside hosp., previous admission, EMS record, old EKG, old radiological studies, urgent care reports/EKG's, snf records)? Report findings @ -No old charts were reviewed Differential Diagnosis (chest pain, altered mental status, abdominal pain women, abdominal pain men, vaginal bleeding, weakness, fever, dyspnea, syncope, headache, dizziness, GI bleed, back pain, seizure, CVA, palpatations, mental health, musculoskeletal)? @ -Not applicable EKG interpreted by me (3pts min.). @ -As above X-rays interpreted by me (1pt min.). @ -None done CT interpreted by me (1pt min.). @ -CT of the left knee showing hemarthrosis and suspected intracondylar avulsion fracture U/S interpreted by me (1pt. min.). @ -None done What testing was considered but not performed or refused? (CT, X-rays, U/S, labs)? Why? @ -None What meds were considered but not given or refused? Why? @ -None Did you discuss the management of the patient with other professionals (professionals i.e. DrRachel, PA, HOT TAM[employer] WORKER, lab, RT, psych nurse, social services assistant, branch controller, teacher, corporate trust officer, case supervisor)? Give summary @Orthopedics Was smoking cessation discussed for >3mins.? @ -No Was critical care preformed (if so, how long)? @ -No Were there social determinants of health that impacted care today? How? (Homelessness, low income, unemployed, alcoholism, drug addiction, transportation, low edu. Level, literacy, decrease access to med. care, usp, rehab)? @ -No Was there de-escalation of care discussed even if they declined (Discuss DNR or withdrawal of care, Hospice)? DNR status @ -No What co-morbidities impacted this encounter? (DM, HTN, Smoking, COPD, CAD, Cancer, CVA, ARF, Chemo, Hep., AIDS, mental health diagnosis, sleep apnea, morbid obesity)? @ -None Was patient admitted / discharged? Hospital course, mention meds given and route, prescriptions, significant lab abnormalities, going to OR and other pertinent info. @ -67-year-old male with mechanical fall 1 week ago with significant pain and swelling to the left knee. Patient has a large effusion on exam and ecchymosis. He had outpatient x-rays performed which were reported as negative. CT was obtained which showed hemarthrosis and likely avulsion fracture in the intracondylar region. Possible ligamentous injury. Patient will require MRI. I did place in a knee immobilizer and give crutches. He will follow closely with orthopedics. Undiagnosed new problem with uncertain prognosis? @ -No Drug Therapy requiring intensive monitoring for toxicity (Heparin, Nitro, Insulin, Cardizem)? @ -No Were any procedures done? @ -No Diagnosis/symptom? @ -[Avulsion fracture, hemarthrosis Acute, or Chronic, or Acute on Chronic? @Acute Uncomplicated (without systemic symptoms) or Complicated (systemic symptoms)? @ -Default Side effects of treatment? @ -No Exacerbation, Progression, or Severe Exacerbation? @ -No Poses a threat to life or bodily function? How? (Chest pain, [place], [place], pneumonia, PE, COPD, DKA, ARF, appy, cholecystitis, CVA, Diverticulitis, Homicidal, Suicidal, threat to staff... and all critical care pts) @ -No Disposition Clinical Impression: Hemarthrosis, Avulsion fracture Disposition: HOME SELF-CARE Condition: Fair Instructions (If sedation given, give patient instructions): Hemarthrosis (ED) Is patient prescribed a controlled substance at d/c from ED?: No Referrals: Juliette De Guzman MD [Primary Care Provider] - 1-2 days Kiran Hansen DO [Doctor of Osteopathic Medicine] - 1-2 days Time of Disposition: 11:13
--- NOTE | 2023-05-09 10:50 | CT ---
EXAMINATION TYPE: CT knee LT wo con DATE OF EXAM: 05/09/2023 COMPARISON: None HISTORY: Fall [address] DLP: 169.4 mGycm Automated exposure control for dose reduction was used. Unenhanced CT of the left knee was performed with bone and soft tissue window settings submitted. Images are reviewed in the axial, coronal and sa gittal planes. FINDINGS: There is a large hemarthrosis noted supra patellar bursa. 2 calcified loose bodies are seen within th e suprapatellar bursa measuring 5 mm and 3 mm respectively. There is prepatellar edema. Suprapatellar bone spur noted. There is ossific density noted in the region of the anterior intercondylar spine as well as cortical lucency intercondylar region 40 of 85 on axial data set. Suspect avulsion fracture possibly related to ACL tear. IMPRESSION: 1. Suspect intracondylar avulsion fracture possibly related to ACL tear. Correlate with MRI. 2. large suprapatellar hemarthrosis with 2 calcified loose bodies noted. 3. Prepatellar soft tissue edema.
[2023-05-09 12:44] VITALS: BP 115/86; PULSE 71; TEMP 98.1
== END 2023-05-09 12:39 | disposition home or self-care (01) ==
LOC: EC 09:32
DX: S82.002A Unspecified fracture of left patella, initial encounter for closed fracture (principal); I48.91 Unspecified atrial fibrillation; I11.0 Hypertensive heart disease with heart failure; I50.9 Heart failure, unspecified; E07.9 Disorder of thyroid, unspecified; Z79.899 Other long term (current) drug therapy; Z79.82 Long term (current) use of aspirin; Z79.01 Long term (current) use of anticoagulants; W18.30XA Fall on same level, unspecified, initial encounter
CPT/HCPCS: 99284

== ENCOUNTER 2023-05-25 05:38 | Day surgery (SDC) | payer MEDICARE ==
[2023-05-22 16:17] VITALS: BMI 35.5
[2023-05-25] MEDS: LACTATED RINGERS 1,000 ML IV SCH (06:23)
[2023-05-25 06:55] LABS: Glucose,Whole Blood 111 mg/dL (70-110)
[2023-05-25] MEDS ORDERED: MIDAZOLAM 2 MG/2 ML VIAL IV PRN (07:00)
[2023-05-25] MEDS ORDERED: ONDANSETRON 4 MG/2 ML VIAL ONE (07:01)
[2023-05-25] MEDS: DEXAMETHASONE SOD PHOSPHATE 4 MG/ML 1 ML VIAL IV ONE (07:01)
[2023-05-25] MEDS: ONDANSETRON 4 MG/2 ML VIAL IVP ONE (07:01)
[2023-05-25] MEDS: MIDAZOLAM 2 MG/2 ML VIAL IVP ONE (07:13)
[2023-05-25] MEDS: fentaNYL (PF) 50 MCG/ML 2 ML AMP IVP ONE (07:14)
[2023-05-25] MEDS ORDERED: TRANEXAMIC 1,000 MG/100ML-NACL PREMIX BAG ONE (07:25)
[2023-05-25] MEDS ORDERED: ePHEDrine 50 MG/ML 1 ML VIAL ONE (07:25)
[2023-05-25] MEDS ORDERED: PROPOFOL 10 MG/ML 20 ML VIAL IV ONE (07:25)
[2023-05-25] MEDS ORDERED: LIDOCAINE 1% INJ 10MG/ML (20 ML MDV) ONE (07:25)
[2023-05-25] MEDS ORDERED: GLYCOPYRROLATE 0.2 MG/ML 2 ML VIAL ONE (07:25)
[2023-05-25] MEDS ORDERED: ROPIVACAINE 5 MG/ML 30 ML VIAL ONE (07:25)
[2023-05-25] MEDS ORDERED: PHENYLEPHRINE 10 MG/ML VIAL ONE (07:25)
[2023-05-25] MEDS ORDERED: fentaNYL (PF) 50 MCG/ML 2 ML AMP ONE (07:25)
[2023-05-25] MEDS ORDERED: ROCURONIUM 10 MG/ML (5 ML VIAL) IV ONE (07:25)
[2023-05-25] MEDS ORDERED: VASOPRESSIN 20 UNIT/ML 1 ML VIAL ONE (07:25)
[2023-05-25] MEDS ORDERED: MIDAZOLAM 2 MG/2 ML VIAL ONE (07:25)
[2023-05-25] MEDS ORDERED: NEOSTIGMINE 1 MG/ML 10 ML VIAL ONE (07:25)
[2023-05-25] MEDS ORDERED: SUCCINYLCHOLINE CHLORIDE 200 MG/10 ML VIAL IV ONE (07:25)
[2023-05-25] MEDS ORDERED: WATER FOR INJECTION, STERILE 10 ML VIAL IV ONE (07:25)
[2023-05-25 07:28] LABS: ALT 17 U/L (4-49); AST 30 U/L (17-59); African American GFR (CKD) >90 (>60 ml/min/1.73 sqM); Albumin 4.1 g/dL (3.5-5.0); Alkaline Phosphatase 105 U/L (38-126); Anion Gap 9 mmol/L; Blood Urea Nitrogen 20 mg/dL (9-20); Calcium 9.6 mg/dL (8.4-10.2); Carbon Dioxide 26 mmol/L (22-30); Chloride 102 mmol/L (98-107); Glucose 119 mg/dL (74-99); Non-African American GFR(CKD) 79 (>60 ml/min/1.73 sqM); Sodium 137 mmol/L (137-145); Total Bilirubin 1.1 mg/dL (0.2-1.3); Total Protein 7.2 g/dL (6.3-8.2)
[2023-05-25] MEDS: LACTATED RINGERS 1,000 ML IV ONE ×2 (08:15→10:44)
[2023-05-25] MEDS ORDERED: MAGNESIUM HYDROXIDE 2,400 MG/30 ML CUP PO PRN (09:45)
[2023-05-25] MEDS ORDERED: NALOXONE 0.4 MG/ML 1 ML VIAL IV PRN (09:45)
[2023-05-25] MEDS ORDERED: hydrOXYzine pamoate 25 MG CAP PO PRN (09:45)
[2023-05-25] MEDS ORDERED: ONDANSETRON 4 MG/2 ML VIAL IVP PRN (09:45)
[2023-05-25] MEDS ORDERED: HYDROcodone/APAP 5-325MG 1 EACH TAB PO PRN (09:45)
[2023-05-25] MEDS ORDERED: bisacodyL 10 MG SUPP RECTAL PRN (09:45)
--- NOTE | 2023-05-25 09:45 | P.OP ---
Date of Procedure: 05/25/23 Preoperative Diagnosis: Left complete distal quadriceps rupture off of the superior pole of the patella Postoperative Diagnosis: Same Procedure(s) Performed: Open repair left distal quadriceps tendon rupture Anesthesia: MARISA Surgeon: Paul Villa Credit Control Officer #1: Miles Umana Estimated Blood Loss (ml): 100 IV fluids (ml): 1,400 Pathology: none sent Condition: stable Disposition: PACU Indications for Procedure: The patient is a very pleasant 67-year-old male with multiple medical problems including being on chronic anticoagulation with Eliquis who sustained an injury to his left knee several weeks ago and the bleachers at a hockey game. He presented to my office shortly after and was found to have a palpable defect in his leg above the patella and an inability to perform a straight leg raise. He was sent for an MRI which confirmed a full-thickness and complete rupture of the quadriceps tendon off of the patella. My recommendation was to perform an open repair of the quadriceps tendon. I long discussion with the patient and his on the potential risks and complications of surgery including but certainly not limited to risks from anesthesia, superficial infection, deep infection, delayed wound healing, rerupture, stiffness, extensor lag, an inability to regain preinjury level of function, DVT PE, other medical complications, and possibly loss of life or limb. The patient and his understand that while these are the most common complications there are certainly other less common complications possible. They provided both her verbal and written consent to go forward with surgery. Operative Findings: Complete rupture of the quadriceps tendon off of the superior pole of the patella as well as a torn medial and lateral retinaculum. The distal quadriceps tendon had very poor quality consistent with chronic tendinitis. Description of Procedure: The patient was identified in preoperative holding and the correct left leg was marked with my initials. I reviewed the consent form with the patient and his . All of their questions were answered. The patient was then brought back to the operating room by anesthesia. He was positioned on the OR table where a general anesthetic and preoperative antibiotics were given. The patient was then carefully positioned for surgery. A bump was placed under his left buttock internally rotating the leg to neutral. A ramp of towels was placed under the left leg to facilitate imaging. A tourniquet was applied to the most proximal aspect of the left leg but was not utilized during the procedure. A nonsterile drape was used over the leg. A presurgical scrub was then performed using a chlorhexidine scrub brush. The left leg was then prepped and draped in the standard sterile fashion. Prior to starting surgery timeout was performed identifying the correct patient, operative extremity, and procedure. A longitudinal incision was made directly over the anterior aspect of the knee starting proximal to the superior pole of the patella and extending distally over the tibial tubercle. Skin incision was made with a scalpel and dissection was carried down carefully through the subcutaneous tissue with electrocautery. Immediately upon entering the deep fascial layer there was a large selby of consolidating hematoma and the distal quadriceps tendon rupture was immediately visualized. After careful dissection the patient was found to have a complete avulsion of the distal quadriceps tendon off of the superior hole of the patella and had also torn the medial and lateral retinaculum. The tendon appeared to have chronic degeneration consistent with chronic tendinitis. The wound was thoroughly irrigated with pulsatile lavage removing all consolidating hematoma. The superior pole of the patella was then prepared by making a bony trough to facilitate tendon to bone healing. I then grasped the distal quadriceps tendon with 2 separate running Krakw sutures using #2 Orthosorb cord creating 4 strands within the distal quadriceps tendon. I then used a 2.5 drill bit to make a bone tunnel in the midline of the patella from proximal to distal. A Hewson passer was then placed from distal to proximal and the middle 2 strands of the repair were shuttled through the central bony tunnel. Using a 2.0 mm drill bit bone tunnels were made medial and lateral to this allowing for adequate bone bridge to prevent inadvertent fracture. The medial and lateral sutures were then shuttled from distal to proximal again using a Hewson passer. I then used my gloved finger to break up adhesions around the quadriceps tendon to facilitate mobilization. The joint was thoroughly irrigated before closing and repairing the quadriceps tendon. By pulling tension on the sutures through the bony tunnels the quadriceps tendon was nicely approximated to the bony trough at the superior pole of the patella. Both the medial and lateral limbs were tied over the inferior pole of the patella nicely reapproximating the quadriceps tendon to the superior pole of the patella. There was a sol repair. The retinaculum was then reinforced using both #2 Ethibond and 0 Vicryl sutures further reinforcing the repair. The wound was then thoroughly irrigated with pulsatile lavage and closed in layers. Dermabond was applied over the closed incision followed by a sterile dressing. At the conclusion of surgery all instrument, sponge, and sharp counts were correct. After the drapes were taken down a web roll and Morris wrap were applied followed by a knee immobilizer. The patient was awoken from his anesthetic, transferred from the OR table to a gurney, and brought to recovery having tolerated the procedure well. Artem Umana PA-C was required as a skilled communication assistant due the complexity of the surgery for patient positioning, draping, exposure, closure of wound, and application of dressing. PLAN: The patient can weight-bear as tolerated on his left leg but should have the knee immobilizer on at all times. We will change his dressing at the 2 week postoperative appointment. He would like to discharge home later today. I'm okay with him discharging if he passes physical therapy and is medically stable after evaluation by internal medicine. He'll be discharged home with pain medication and a stool softener. He can resume his eliquis her DVT prophylaxis
[2023-05-25] MEDS: HYDROmorphone 0.5 MG/0.5 ML SYRINGE IVP PRN ×2 (10:13→13:54)
[2023-05-25 10:30] LABS: Glucose,Whole Blood 122 mg/dL (70-110)
[2023-05-25] MEDS: HYDROcodone/APAP 10-325MG 1 EACH TAB PO PRN (11:19)
--- NOTE | 2023-05-25 11:47 | XR ---
EXAMINATION TYPE: XR knee limited LT DATE OF EXAM: 05/25/2023 FLUOROSCOPY Fluoroscopy time of 19 seconds was used during patellar tendon repair. 3 image/s document/s the proc martin. DAP 0.6481 Gycm2.
--- NOTE | 2023-05-25 12:28 | FL ---
EXAMINATION TYPE: FL guidance operating room DATE OF EXAM: 05/25/2023 Comparison: None Clinical History: 67-year-old male TENDON REPAIR Findings: Patellar tendon repair, DAP 0.6481 Gycm2 fluoro time 19 seconds. 3 images submitted. Impression: Intraoperative fluoroscopy as above.
[2023-05-25] MEDS: Pre Op ABX Message 1 EACH MISC MISCELLANE ONE (13:23)
[2023-05-25] MEDS: diazePAM 5 MG TAB PO PRN (13:56)
--- NOTE | 2023-05-25 15:40 | P.ANPRN ---
Procedure Note - Anesthesia - Nerve Block Performed Left Adductor Canal Single Time Out Performed: Yes (0713) Date of Procedure: 05/25/23 Procedure Start Time: 07:14 Procedure Stop Time: 07:18 Location of Patient: PreOp Indication: Acute Post-Operative Pain, Requested by Surgeon Specifically requested for management of pain by DrRachel: Paul Villa Sedation Type: Sedate with meaningful contact maintained Preparation: Sterile Prep Position: Supine Catheter: None Needle Types: Pajunk Needle Gauge: 21 Ultrasound used to visualize needle placement: Yes Ultrasound used to observe medication spread: Yes Injectate: 0.5% Ropivacaine (see comment for volume) (30cc) Blood Aspirated: No Pain Paresthesia on Injection Noted: No Resistance on Injection: Normal Image Stored and Saved: Yes Events: Uneventful and Well Tolerated
[2023-05-25] MEDS: SODIUM CHLORIDE 0.9% 1,000 ML IV SCH (18:22)
[2023-05-25] MEDS: BUMETANIDE 1 MG TAB PO SCH (18:26)
[2023-05-25] MEDS: DILTIAZEM ORAL 60 MG TAB PO SCH (18:26)
[2023-05-25] MEDS: lisinopriL 10 MG TAB PO SCH (18:28)
[2023-05-25] MEDS: APIXABAN 5 MG TAB PO SCH (21:58)
[2023-05-25] MEDS: CHOLECALCIFEROL 125 MCG (5000 IU) TABLET PO SCH (21:58)
[2023-05-25] MEDS: SENNOSIDES-DOCUSATE SODIUM 1 EACH TAB PO SCH (21:59)
[2023-05-25] MEDS: METOPROLOL TARTRATE 50 MG TAB PO SCH (21:59)
[2023-05-25] MEDS ORDERED: DILTIAZEM ORAL 60 MG TAB PO SCH (22:00)
--- NOTE | 2023-05-26 07:42 | P.DS ---
Providers Expected date of discharge: 05/26/23 Attending physician: Paul Villa Consults: 05/25/23 09:45 Consult Physician Routine Consulting Provider: Josr Gloria Consult Reason/Comments: post op medical management Do you want consulting provider notified?: Yes Primary care physician: Juliette De Guzman - Discharge Diagnosis(es) (1) Quadriceps tendon rupture Patient was admitted to the OR on 05/25/23 to undergo a left quadriceps tendon repair. He had failed conservative measures as an outpatient and desired to proceed with elective surgery after given informed consent. He underwent the above procedure which he tolerated well without complication. Postoperative hospital course has remained without complication. On day of discharge he is afebrile, vital signs stable, labs within acceptable ranges, tolerating by mouth meds and diet, voiding without difficulty, positive flatus, denies abdominal pain or calf pain, pain is controlled on oral pain medication and has no new complaints. Wound is benign, neurovascular status is intact, calf is soft and nontender, abdomen soft and nontender. Review of systems is negative for numbness, tingling, fever, chills, chest pain, shortness of breath, nausea, vomiting, dizziness, headaches, slurred speech or other. Current Visit: Yes Status: Acute Priority: Medium Procedures: Left open Quad tendon repair Patient Condition at Discharge: Good Plan - Discharge Summary Discharge Rx Participant: No New Discharge Prescriptions: New HYDROcodone/APAP 5-325MG [Alma 5-325] 1 - 2 tab PO Q6HR PRN #32 tab PRN Reason: Pain Docusate [Colace] 100 mg PO BID #28 capsule No Action Bumetanide 1 mg PO DAILY lisinopriL [Zestril] 10 mg PO QAM Cholecalciferol [Vitamin D3 (25 Mcg = 1000 Iu)] 5,000 unit PO HS Metoprolol Tartrate [Lopressor] 100 mg PO BID Apixaban [Eliquis] 5 mg PO BID dilTIAZem HCL 60 mg PO TID Semaglutide [Ozempic] 0.5 mg SQ MO Hydrocodone (Unknown Dose) 1 tab PO DIRECTED PRN PRN Reason: Pain Discharge Medication List Bumetanide 1 mg PO DAILY 01/18/16 [History] lisinopriL [Zestril] 10 mg PO QAM 01/18/16 [History] Cholecalciferol [Vitamin D3 (25 Mcg = 1000 Iu)] 5,000 unit PO HS 12/11/16 [History] Metoprolol Tartrate [Lopressor] 100 mg PO BID 01/22/17 [History] Apixaban [Eliquis] 5 mg PO BID 11/19/20 [History] Hydrocodone (Unknown Dose) 1 tab PO DIRECTED PRN 05/22/23 [History] Semaglutide [Ozempic] 0.5 mg SQ MO 05/22/23 [History] dilTIAZem HCL 60 mg PO TID 05/22/23 [History] Docusate [Colace] 100 mg PO BID #28 capsule 05/25/23 [Rx] HYDROcodone/APAP 5-325MG [Alma 5-325] 1 - 2 tab PO Q6HR PRN #32 tab 05/25/23 [Rx] Follow up Appointment(s)/Referral(s): Paul Villa MD [Medical Doctor] - 2 Weeks Activity/Diet/Wound Care/Special Instructions: 1. Weight-bear as tolerated on your operative extremity unless instructed otherwise. Use a walker or other assistive device to ambulate. Leave knee immoblizer on at all times except for hygiene. 2. Leave surgical dressing in place. If your dressing becomes saturated with blood, there is drainage, or the dressing becomes loose please contact the office. 3. You can resume your Eliquis the day after surgery. 4. While taking Alma or Percocet for pain make sure you're taking a stool softener (Colace) and drink lots of water. 5. Keep all follow-up appointments as scheduled. You will usually be seen in 1-2 weeks following surgery. 6. Please contact the office with any questions or concerns [phone] Discharge Disposition: HOME SELF-CARE
[2023-05-26 08:31] VITALS: BP 125/79; PULSE 81; TEMP 98.2
--- NOTE | 2023-05-26 11:08 | P.CONS ---
History of Present Illness - Reason for Consult Consult date: 05/26/23 - History of Present Illness Brain Hyman, is a 67-year-old male who was admitted to [facility] by Dr. Villa, and underwent open repair of left distal quadricep tendon rupture, patient was admitted to medical floor post surgery, medical consultation was requested for management while hospitalized. Patient has a known past medical history significant for hypertension, hyperlipidemia, diabetes mellitus type 2, history of atrial fibrillation, history of morbid obesity, history of thyroid disorder. On review of systems patient is alert and oriented 3 in no apparent distress he denies any complaints there is no fever or chills no headache or dizziness no chest pain no shortness of breath no cough no nausea or vomiting no abdominal pain no diarrhea no blood in the stools no burning with urination no frequency or urgency and no hematuria. There is no weakness or numbness in any of the extremities there is no change in vision speech or gait. Past Medical History Past Medical History: Atrial Fibrillation, Heart Failure, Diabetes Mellitus, Hyperlipidemia, Hypertension, Thyroid Disorder Additional Past Medical History / Comment(s): Hx heart failure X1 yrs ago. "Borderline Diabetic, cholesterol better now." "Thyroid problem caused by a cardiac medication, resolved now". History of Any Multi-Drug Resistant Organisms: None Reported Past Surgical History: Tonsillectomy Additional Past Surgical History / Comment(s): CARDIOVERSIONS WITH TEES, colonoscopy. Past Anesthesia/Blood Transfusion Reactions: Postoperative Nausea & Vomiting (PONV) Additional Past Anesthesia/Blood Transfusion Reaction / Comm: SOME NAUSEA POST OP CARDIOVERSION ONCE. Mom PONV. Past Psychological History: No Psychological Hx Reported Additional Psychological History / Comment(s): . Smoking Status: Never smoker Past Alcohol Use History: None Reported Additional Past Alcohol Use History / Comment(s): No alcohol in over 6 yrs. Past Drug Use History: None Reported - Past Family History Mother Family Medical History: Cancer Father Family Medical History: Congestive Heart Failure (CHF) Additional Family Medical History / Comment(s): FATHER OF CHF AT THE AGE OF 72 YRS. Medications and Allergies Home Medications Medication Instructions Recorded Confirmed Type Bumetanide 1 mg PO DAILY 01/18/16 05/25/23 History lisinopriL [Zestril] 10 mg PO QAM 01/18/16 05/25/23 History Cholecalciferol [Vitamin D3 (25 5,000 unit PO HS 12/11/16 05/25/23 History Mcg = 1000 Iu)] Metoprolol Tartrate [Lopressor] 100 mg PO BID 01/22/17 05/25/23 History Apixaban [Eliquis] 5 mg PO BID 11/19/20 05/25/23 History Hydrocodone (Unknown Dose) 1 tab PO DIRECTED PRN 05/22/23 05/25/23 History Semaglutide [Ozempic] 0.5 mg SQ MO 05/22/23 05/25/23 History dilTIAZem HCL 60 mg PO TID 05/22/23 05/25/23 History Docusate [Colace] 100 mg PO BID #28 capsule 05/25/23 Rx HYDROcodone/APAP 5-325MG [[place] 1 - 2 tab PO Q6HR PRN #32 tab 05/25/23 Rx 5-325] Allergies Allergy/AdvReac Type Severity Reaction Status Date / Time No Known Allergies Allergy Verified 05/25/23 06:19 Physical Exam Vitals: Vital Signs Temp Pulse Pulse Resp BP BP Pulse Ox 05/26/23 08:10 98 05/26/23 07:35 98.2 F 81 16 125/79 98 05/26/23 01:45 97.8 F 65 18 118/81 94 L 05/25/23 20:04 97.7 F 89 18 107/64 95 05/25/23 20:00 18 05/25/23 19:41 97.4 F L 70 20 112/72 94 L 05/25/23 16:24 98 111/76 95 05/25/23 15:40 97.6 F 92 17 104/65 96 05/25/23 14:54 71 112/72 94 L 05/25/23 14:24 62 111/74 97 05/25/23 13:54 87 107/70 97 05/25/23 13:39 56 L 114/72 05/25/23 13:24 66 128/72 95 05/25/23 13:12 54 L 89/57 98 05/25/23 11:49 80 16 99/61 97 05/25/23 11:20 90 16 103/71 95 05/25/23 11:05 83 16 106/73 95 05/25/23 10:50 94 L 05/25/23 10:49 87 16 105/70 88 L 05/25/23 10:32 75 16 102/63 99 05/25/23 10:18 78 16 102/60 99 Intake and Output 05/25/23 05/26/23 05/26/23 22:59 06:59 14:59 Output Total 350 700 650 Balance -350 -700 -650 Output: Urine 350 700 650 Other: # Voids 1 In general patient is alert and oriented x 3 in no distress HEENT head normocephalic and atraumatic Neck is supple no JVD no goiter no lymphadenopathy no carotid bruit Chest examination is clear to auscultation no crackles no wheezing Cardiac exam reveals regular heart sounds S1 and S2 no gallops no murmurs Abdomen is soft nontender no organomegaly with normal bowel sounds Extremity exam reveals no edema no cyanosis or clubbing Neurological examination reveals no gross focal deficits Results CBC & Chem 7: 05/25/23 06:58 Labs: Abnormal Lab Results - Last 24 Hours (Table) 05/25/23 Range/Units 10:27 POC Glucose (mg/dL) 122 H (70-110) mg/dL Assessment and Plan Plan: Left complete distal quadriceps rupture off the superior pole of the patella status post surgical repair by Dr. Villa on 05/25/2023 Underlying history of hypertension Underlying history of hyperlipidemia Underlying history of atrial fibrillation Underlying history of thyroid disorder Underlying history of diabetes mellitus type 2 At this time patient was seen and examined Home medications reviewed and reordered For DVT prophylaxis patient is maintained on Eliquis Continue with current management will follow during this admission for medical management Josr Gloria MD
[2023-05-26 12:04] VITALS: RESP 18
[2023-05-28] MEDS ORDERED: NON FORMULARY DRUG (Semaglutide [Ozempic] 1 MG/0.75 ML Each) SQ SCH (09:00)
== END 2023-05-26 11:41 | disposition home or self-care (01) ==
LOC: OR 05:38 → 5NMEDONC 11:37 → OR 05-26 11:41
PROVIDERS: ATTEND Orthopaedic Surgery
DX: S76.112A Strain of left quadriceps muscle, fascia and tendon, initial encounter (principal); E78.5 Hyperlipidemia, unspecified; E11.9 Type 2 diabetes mellitus without complications; I48.91 Unspecified atrial fibrillation; E66.01 Morbid (severe) obesity due to excess calories; I11.0 Hypertensive heart disease with heart failure; I50.9 Heart failure, unspecified; E07.9 Disorder of thyroid, unspecified; Z82.49 Family history of ischemic heart disease and other diseases of the circulatory system; Z79.899 Other long term (current) drug therapy; X58.XXXA Exposure to other specified factors, initial encounter
CPT/HCPCS: 94760; 97161; 64447; 64445; 80053; 73560; 27385; J2250; J1100; J0690; J2405; J3010; J1170